=== PATIENT | female | born 1965 | race Caucasian/White ===

== ENCOUNTER 2018-05-03 14:47 | Emergency (ER) | payer OTHER, SELFPAY ==
[2018-05-03 14:47] VITALS: BP 162/87; PULSE 63; RESP 18; TEMP 37.2; O2SAT 99; BMI 25.0
--- NOTE | 2018-05-03 15:17 | ED.DCSUM_ITS ---
- ER Visit Summary Date of Service: 05/03/18 Chief Complaint: Fall History of Present Illness: The patient is a 52 F who is on a folding ladder 5 days ago when the ladder folded. Patient states she twisted and fell on her back on the ladder. She thinks she was approximately 3 or 4 rungs up on the ladder. Patient has been complaining of left lower back pain. It radiates over the back of the left pelvis but not down her leg. She had no problems with bowel or bladder control. She has been taking ibuprofen, Norflex, and prednisone. Physical Examination: Vital signs significant for blood pressure 162/87, otherwise normal. Patient is standing at bedside. Head and neck examination reveals no trauma. Heart is regular rate and rhythm. Lung sounds are clear. Abdomen is soft nontender. Back examination reveals no midline thoracic or lumbar tenderness. There is reproducible tenderness in the left lumbar paraspinal muscles. No overlying ecchymosis. Lower extremity examination was good strength and sensation. Test Results: [] Emergency Department Course and Treatment: I discussed with the patient she has no focal tenderness over any of the bony structures in her back. She is in agreement. I believe this is all muscle spasm. She will continue her current medication regimen and we will add a short course of [place] for better pain control. Treatment Plan: [] Disposition: Discharge Impression: Lumbar paraspinal spasm status post fall This note was generated with [employer] dictation software. It may contain incorrect words, spelling, and punctuation that were not noted in review of the chart prior to signing ED Disposition - Plan for ED Patient: Chief Complaint: Fall Referrals: Care Physician,No Primary [Primary Care Provider] -
--- NOTE | 2018-05-03 15:18 | ED.DEP ---
ED Disposition - Plan for ED Patient: Disposition: Home or Assisted Living Chief Complaint: Fall Instructions: ED Low Back Pain Injury Prescriptions: Hydrocodone Bitart/Apap 5-325 [[place] 5MG-325MG] 1 tablet PO Q6H PRN PRN 3 Days #10 tablet PRN Reason: Pain
[2018-05-03] MEDS: HYDROcodone Bitartrate/Apap 5/325 Tablet PO (15:24)
== END 2018-05-03 15:41 | disposition home or self-care (01) ==
LOC: ED 15:33
PROVIDERS: Emergency Provider Emergency Medicine
DX: M62.830 Muscle spasm of back (principal); W11.XXXA Fall on and from ladder, initial encounter; Z72.0 Tobacco use
CPT/HCPCS: 99283

== ENCOUNTER 2019-06-25 18:57 | Emergency (ER) | payer BC, SELFPAY ==
[2019-06-25 18:58] VITALS: BP 161/86; PULSE 74; RESP 14; TEMP 36.4; O2SAT 100; BMI 25.0
--- NOTE | 2019-06-25 19:15 | CT_ITS ---
STUDY: CT ABDOMEN AND PELVIS WITH CONTRAST REASON FOR EXAM: Female, 53 years old. Right lower quadrant pain. RADIATION DOSAGE (If Supplied By Facility): CTDIvol = ( 15.43 ) mGy, DLP = ( 732.33 ) mGycm TECHNIQUE: Transaxial images were obtained from the dome of the diaphragm to the symphysis pubis without oral contrast. Oral and amp; IV Gastrografin and amp; 100mL Isovue-300 100ML was administered. Sagittal and coronal images were reconstructed. Individualized dose optimization techniques were used for this CT. COMPARISON: 01/22/2016. FINDINGS: The visualized lung bases are unremarkable. The visualized portions of the heart are within normal limits. Normal liver. Normal gallbladder and extrahepatic biliary system. Normal spleen. Normal pancreas. Normal bilateral adrenal glands. Normal right kidney. Normal left kidney. Normal visualized stomach. Normal small intestine. Normal colon. The appendix is visualized and appears normal. Normal abdominal aorta. Normal inferior vena cava. Normal retroperitoneum. Normal urinary bladder. There is absence of the uterus consistent with a prior hysterectomy. Increasing size of a bilobed right ovarian/adnexal cyst measuring 4.1 cm greatest dimension. As recommended on the prior exam, ultrasound pelvis again indicated. Normal abdominal wall. Normal osseous structures. CT/Abdomen/Pelvis WITH Contrast IMPRESSION: Increasing size of a probable bilobed right ovarian/adnexal cyst measuring 4.1 cm. Ultrasound recommended. No other significant finding. Electronically Signed: Kamron Moralez MD at 21:35 EDT , Service support ,
[2019-06-25] MEDS: Ondansetron 4 MG/2 ML Vial IV (19:24)
[2019-06-25] MEDS: Morphine 4 MG/ML Syringe IV (19:26)
[2019-06-25 19:35] LABS: Mucous, Urine 0 SEEN /hpf (<or=2+); Red Blood Cells-Urine 0 SEEN /hpf (0-5)
[2019-06-25 19:40] LABS: Absolute Lymphocyte Count 3.96 X10^3/uL (0.83-4.51); Absolute Neutrophil Count 4.1 X10^3/uL (2.0-7.7); Basophil# 0.04 X10^3/uL; Basophil% 0.4 % (0-1); Color, Urine Yellow (Yellow); Eosinophil# 0.28 X10^3/uL; Eosinophils% 3.1 % (0-5); Glucose, Dipstick Normal (Normal); Hematocrit 46.4 % (37-47); Hemoglobin 14.8 g/dL (12.0-15.0); Ketone-Dipstick Negative (Negative); Leukocyte Esterase-Dipstick Negative /ul (Negative); Lymphocyte # 3.96 X10^3/ul (4.0); Lymphocyte % 44.4 % (19-41); Mean Corp Hgb Conc 31.9 g/dL (32-36); Mean Corpuscular Hgb 30.8 pg (27.0-32.0); Mean Corpuscular Volume 96.7 fL (81-99); Mean Platelet Vol. 10.1 fl (6.2-12.0); Monocyte# 0.53 X10^3/uL; Monocyte% 5.9 % (0-10); NRBC Flagged by Analyzer 0 % (0-5); Neutrophil # 4.09 X10^3/uL (2.7-7.7); Neutrophil % 46.1 % (47-70); Nitrite-Dipstick Negative (Negative); Occult Blood-Urine Negative /ul (Negative); Platelet Count 270 K/mm3 (150-450); Protein-Dipstick Negative (Negative); RBC Distribution Width CV 12.4 % (11.6-14.6); RBC Distribution Width SD 44.7 fl (35.1-43.9); Urine Bilirubin Dipstick Negative (Negative); Urine Clarity Sl. Cloudy (Clear); Urine Urobilinogen Normal (Normal); White Blood Count 8.9 K/mm3 (4.4-11.0)
[2019-06-25 19:49] LABS: Anion Gap 6 (5-15); BUN 13 mg/dL (7-18); BUN/Creat Ratio 15.2 RATIO (10-20); Calcium,Total 9.2 mg/dL (8.5-10.1); Chloride 106 mmol/L (98-107); Creatinine, Serum 0.86 mg/dL (0.55-1.02); EST Glomerular Filtration Rate 74 mL/min (>60); Est Glom Filt Rate - Afr Amer 89 mL/min (>60); Estimated Creatinine Clearance 76.31 ml/min; Glucose 85 mg/dL (74-106); Potassium 3.4 mmol/L (3.5-5.1); Sodium Level 141 mmol/L (136-145)
[2019-06-25] MEDS: 0.9% Normal Saline 1,000 ML 125 ML IV (19:53)
[2019-06-25 19:57] LABS: Lactic Acid 1.4 mmol/L (0.4-2.0)
[2019-06-25 19:58] LABS: Squamous Epithelial Cells - UA 0-5 SEEN /hpf (5-10)
[2019-06-25 19:59] LABS: Bacteria 1+ /hpf (None Seen); White Blood Cells 0-5 SEEN /hpf (0-5)
[2019-06-25 21:44] VITALS: BP 137/79; PULSE 57; RESP 16; O2SAT 99
--- NOTE | 2019-06-25 22:07 | ED.VISSUMM ---
- ER Visit Summary Date of Service: 06/25/19 Chief Complaint: Abdominal pain [] History of Present Illness: The patient is a 53 F [presents to the emergency department complaint of right lower quadrant abdominal pain. Patient states that the pain started 2 days ago. Currently she rates her pain a 7 out of 10. Patient states the pain is been continuous. Patient denies any vomiting or diarrhea. She denies any blood in her stool or black tarry stool. Patient's had no fever. She denies urinary symptoms. Patient does have a history of GERD. Patient has had prior partial hysterectomy but still has both ovaries.] Physical Examination: [HEENT-PERRLA, EOMI. Cranial nerves II through XII grossly intact. TMs clear. Mucous membranes moist. No adenopathy. Cardiovascular-regular rate and rhythm without murmur or ectopy Lungs-clear to auscultation, chest wall stable without crepitus or subcu emphysema Abdomen-normoactive bowel sounds, soft. Patient has tenderness to palpation over right lower quadrant into the lower pelvis. No masses palpated. There is no rebound, rigidity, or perineal signs. Extremities-intact ?4, normal range of motion, normal pulses, atraumatic] Test Results: [BC with it was normal. Chemistries were normal. Urinalysis was normal. CT scan of the abdomen pelvis with IV and p.o. contrast obtained showed a 4.1 cm right ovarian cyst. Patient had a normal appendix. No evidence of kidney stones.] Emergency Department Course and Treatment: [Patient was medicated with morphine and Zofran had good pain relief with that.] Treatment Plan: [She will be given a prescription for a few [place] for pain. Patient will be referred to her [employer] M[employer]INE OPERATOR for follow-up as it was recommended by radiology that patient have an ultrasound to evaluate the right ovarian cyst further. I do not feel this ultrasound needs to be performed emergently tonight. Patient is in agreement and will follow up with her [employer] MACHINE OPERATOR.] Disposition: [Discharged home in stable condition.] Impression: [Abdominal pain Right ovarian cyst] This note was generated with [employer] dictation software. It may contain incorrect words, spelling, and punctuation that were not noted in review of the chart prior to signing ED Disposition - Plan for ED Patient: Referrals: Care Physician,No Primary [Primary Care Provider] -
--- NOTE | 2019-06-25 22:09 | ED.DEP ---
ED Disposition - Plan for ED Patient: Instructions: Ovarian Cyst Prescriptions: Hydrocodone Bitart/Apap 5-325 [[place] 5MG-325MG] 1 tab PO Q4H PRN PRN 2 Days #10 tab PRN Reason: Pain Prescription Printed Referrals: Care Physician,No Primary [Primary Care Provider] - Dipti Fitzgerald MD [STAFF PHYSICIAN] - 3-5 Days
[2019-06-25 22:21] VITALS: BP 168/79; PULSE 64; RESP 16; O2SAT 98
== END 2019-06-25 22:22 | disposition home or self-care (01) ==
LOC: ED 19:26
PROVIDERS: Emergency Provider Emergency Medicine
DX: R10.31 Right lower quadrant pain (principal); N83.201 Unspecified ovarian cyst, right side; Z72.0 Tobacco use
CPT/HCPCS: 74177; 80048; 81001; 83605; 85025; 96361; 96374; 96375; 99283; J7030; Q9967; A4216; J2405